=== PATIENT | female | born 1995 | race Caucasian/White ===

== ENCOUNTER 2018-08-30 13:19 | Day surgery (SDC) | payer OTHER ==
[~2018-08-30] VITALS: Ht 152.4 cm; Wt 39.5 kg
[2018-08-30] VITALS (14 sets, daily range): BP systolic 117–132; BP diastolic 68–83; PULSE 54–62; RESP 14–25
[~2018-08-30 13:19] MED LIST: DESFLURANE 15 MIN ONE; DEXAMETHASONE 4 MG/ML 5 ML INJ ONE
[2018-08-30] MEDS ORDERED: CARV25TA97 PO (14:06)
[2018-08-30] MEDS ORDERED: NIFE60TA18 PO (14:06)
--- NOTE | 2018-08-30 15:12 | PREAC ---
Date/Time of Note Date/Time of Note DATE: 08/30/18 TIME: 15:10 Anesthesia Eval and Record Evaluation Time Pre-Procedure Interview DATE: 08/30/18 TIME: 15:10 Age 23 Sex female NPO: 8 hrs water 9am Preoperative diagnosis chronic sinusitis Planned procedure endoscopis sinus surgery Past Medical History Past Medical History: Includes Cardio: HTN Renal: ESRD on dialysis, HD last: (yesterday) Surgery & Anesthesia Issues No known issue Meds Anticoagulation: No Beta Alonso within 24 hr: Yes Reported Medications Carvedilol* (Coreg*) 25 Mg Tablet, 25 MG PO BID, #60 TAB 08/30/18 Nifedipine* (Nifedipine ER*) 60 Mg Tablet.sa, 60 MG PO DAILY, TAB.SA 08/30/18 Meds reviewed: Yes Allergies Coded Allergies: No Known Allergy (Unverified , 08/29/18) Allergies Reviewed: Yes Labs/Studies Labs Reviewed: Reviewed by anesthesiologist Result Diagram: 08/30/18 1400 Laboratory Tests 08/30/18 14:00 test: Negative Studies: ECG (sr), CXR (nl) Pre-procedure Exam Last vitals Vital Signs Date Temp Pulse Resp B/P (MAP) Pulse Ox O2 O2 Flow FiO2 Time Delivery Rate 08/30/18 98.1 56 16 131/82 100 Room Air 14:03 (98) Airway: Adequate mouth opening Mallampati: Mallampati I Teeth: Normal Lung: Normal Heart: Normal ASA Physical Status ASA physical status: 3 Emergency: None Planned Anesthetic General/MAC: ETT Planned Pain Management Parenteral pain med Pre-operative Attestations Prior to commencing anesthesia and surgery, the patient was re-evaluated, there was verification of: *The patient's identity *The results of appropriate recent lab work and preoperative vital signs *The above evaluation not changing prior to induction *Anesthetic plan, risk benefits, alternative and complications discussed with patient/family; questions answered; patient/family understands, accepts and wishes to proceed. ARLET ARAUJO MD Aug 30, 2018 15:12
[2018-08-30] MEDS ORDERED: PROPOFOL 20 ML ONE (15:20)
[2018-08-30] MEDS ORDERED: ROCURONIUM 50 MG INJ ONE (15:20)
[2018-08-30] MEDS ORDERED: MIDAZOLAM 1 MG/ML 2 ML INJ ONE (15:20)
[2018-08-30] MEDS ORDERED: METOCLOPRAMIDE 10 MG INJ ONE (15:21)
--- NOTE | 2018-08-30 15:28 | HPN ---
Date/Time of Note Date/Time of Note DATE: 08/30/18 TIME: 15:28 Interval H&P Admission Note Pt. seen H&P reviewed: No system changes KAYE LYON MD Aug 30, 2018 15:28
[2018-08-30] MEDS ORDERED: hydrALAzine 20 MG INJ IV PRN (15:30)
[2018-08-30] MEDS ORDERED: DIPHENHYDRAMINE 50 MG INJ IV PRN (15:30)
[2018-08-30] MEDS ORDERED: MEPERIDINE 25 MG INJ IV PRN (15:30)
[2018-08-30] MEDS ORDERED: LIDOCAINE 1%/EPI (1:100,000) (MDV) 20 ML ONE (15:30)
[2018-08-30] MEDS ORDERED: OXYMETAZOLINE 0.05% 15 ML NAS SPRAY NASAL ONE (15:30)
[2018-08-30] MEDS ORDERED: HYDROmorphONE 1 MG/5 ML IV SYRINGE IV PRN ×3 (15:30)
[2018-08-30] MEDS ORDERED: EPHEDrine SULFATE 50 MG/5 ML SYG IV PRN (15:30)
[2018-08-30] MEDS ORDERED: ONDANSETRON 4 MG INJ IV PRN (15:30)
[2018-08-30] MEDS ORDERED: LABETALOL HCL 20MG INJ IV PRN (15:30)
[2018-08-30] MEDS ORDERED: BACITRACIN/POLYMYXIN 28.35 GM OINT TOP ONE (15:31)
[2018-08-30] MEDS ORDERED: COCAINE 4% 4 ML TOP ONE (15:31)
[2018-08-30] MEDS ORDERED: FENTAnyl 50 MCG/ML VIAL ONE (15:59)
[2018-08-30] MEDS ORDERED: NEOSTIGMINE 10 MG INJ ONE (16:15)
[2018-08-30] MEDS ORDERED: GLYCOPYRROLATE 0.4 MG INJ ONE (16:15)
[2018-08-30] MEDS ORDERED: CEFAZOLIN 1 GM INJ ONE (16:16)
--- NOTE | 2018-08-30 16:31 | OPR ---
Date/Time of Note Date/Time of Note DATE: 08/30/18 TIME: 16:29 Operative Report Procedure Date: Aug 30, 2018 Preoperative Diagnosis Chronic right maxillary sinusitis. Postoperative Diagnosis Same Operation/Procedure Performed Endoscopic, image guided, right frontal sinusotomy, revision maxillary antrostomy, completion of total ethmoidectomy. Surgeon see signature line Lamination Spinner None Anesthesia Type: general Estimated Blood Loss: 150 - 200 ml's Transfusion none Specimen Right nasal sinus contents. Grafts/Implants none Complications none Pt Condition Post Procedure: stable Disposition: PACU Indications Recurrent polyp and infection right sinus system. Procedure Description Findings: Severe right nasal cavity polyposis, soft tissue mass within the maxillary sinus to the nasopharynx. No aggressive features. Description of procedure:The patient was identified in the holding area. We had a discussion to confirm understanding of all indications risks benefits alternatives and postoperative care associated with the operation. The patient signed informed consent was taken to the operating room. The patient was laid supine on the operating room table and anesthesia was provided in the following manner: GETA. The face was draped in sterile fashion and the nose was packed with 4% cocaine pledgets. 0 endoscopy was performed of all nasal turbinates and meati. This revealed the findings described above. The procedure began on the right side under endoscopic guidance. The microdebrider was used to resect the polypoid mass in an inferior to superior fashion until the area of the frontal sinus outflow tract and previous ethmoid bed was reached. Frontal sinusotomy: A curved curet was used to remove the bony elements of the Ager Nasi cell. Next, with a 45 camera, the frontal sinus outflow tract was entered with a balloon and the tract expanded. Retraction of the balloon allowed removal of excess mucos and bony fragments. Care was taken not to cause too much mucosal disruption in this area in order to avoid scarring and stenosis. Maxillary antrostomy: The large mass was carefully removed from the ethmoid bed and maxillary sinus. The antrostomy that had been made earlier was patent. There was extensive mucosal edema but no invasive process. The sinus was irrigated and excess mucosal polyp removed. Ethmoidectomy: Next, the zero degree endoscope was again used to visualize the middle meatus. Anterior and posterior ethmoid air cell remnants were resected in an inferior to superior fashion sparing the lamina papyracea and the skull base. All excess mucosa and polypoid tissue were removed with an upbiting forcep. At this point, all bony fragments were removed and a large Nasopore was placed into the ethmoidectomy defect. The contralateral side was at this point assessed with endoscopy. The posterior septum was bowed and edematous but no mass or polyp was appreciated. This side was not involved on CT so it was left unaltered. The patient was awakened, extubated and taken to the PACU in stable condition. Complications: None. KAYE LYON MD Aug 30, 2018 16:31
--- NOTE | 2018-08-31 07:42 | PAC ---
Date/Time of Note Date/Time of Note DATE: 08/31/18 TIME: 07:41 Post-Anesthesia Notes Post-Anesthesia Note Last documented vital signs Vital Signs Date Temp Pulse Resp B/P (MAP) Pulse Ox O2 O2 Flow FiO2 Time Delivery Rate 08/30/18 98.5 54 18 126/73 98 17:37 (90) 08/30/18 Room Air 17:26 Activity: WNL Respiratory function: WNL Cardiovascular function: WNL Mental status: Baseline Pain reasonably controlled: Yes Hydration appropriate: Yes Nausea/Vomiting absent: No ARLET ARAUJO MD Aug 31, 2018 07:42
== END 2018-08-30 18:05 | disposition home or self-care (01) ==
LOC: SDS 13:19
PROVIDERS: ATTEND Otolaryngology
DX: J32.0 Chronic maxillary sinusitis (principal)
CPT/HCPCS: 31253; 31256; 80048; 84132; 84702; 88307; 88312; J0690; J1170; J2250; J2710; J2765; J3010; Z7512; Z7610; J1100

== ENCOUNTER 2018-11-27 22:29 | Emergency (ER) | payer BC, OTHER ==
[~2018-11-27] VITALS: Ht 144.8 cm; Wt 41.0 kg
[~2018-11-27 22:29] MED LIST changes: +CARV25TA97 PO; -DESFLURANE 15 MIN ONE; -DEXAMETHASONE 4 MG/ML 5 ML INJ ONE; +NIFE60TA18 PO
[2018-11-27 22:32] VITALS: RESP 16; Ht 144.8 cm; Wt 41.0 kg
--- NOTE | 2018-11-28 00:58 | ERD ---
ER Documentation Chief Complaint Chief Complaint LUQ PAIN WITH LEFT ARM PAIN X 1 HR, DIALYSIS M-W-F HPI 23-year-old female is here with left upper quadrant abdominal pain that began about an hour prior to arrival. She states is better now than it was before. She has no nausea or vomiting. No diarrhea. She is a dialysis patient is a dialysis tomorrow. Last dialysis was on Wednesday. No urinary symptoms. Tolerating oral intake. No fever. ROS All systems reviewed and are negative except as per history of present illness. Medications Home Meds Reported Medications Carvedilol* (Coreg*) 25 Mg Tablet, 25 MG PO BID, #60 TAB 08/30/18 Nifedipine* (Nifedipine ER*) 60 Mg Tablet.sa, 60 MG PO DAILY, TAB.SA 08/30/18 Allergies Allergies: Coded Allergies: No Known Allergy (Unverified , 08/29/18) PMhx/Soc History of Surgery: Yes Anesthesia Reaction: No Hx Neurological Disorder: No Hx Respiratory Disorders: No Hx Cardiac Disorders: Yes (HTN) Hx Psychiatric Problems: No Hx Miscellaneous Medical Probl: No Hx Alcohol Use: No Hx Substance Use: No Hx Tobacco Use: No Smoking Status: Never smoker FmHx Family History: No diabetes Physical Exam Vitals Vital Signs Date Temp Pulse Resp B/P (MAP) Pulse Ox O2 O2 Flow FiO2 Time Delivery Rate 11/27/18 98.0 85 16 138/80 98 22:32 (99) Physical Exam INITIAL VITAL SIGNS: Reviewed by me GENERAL: Awake, alert and oriented x 4, well appearing, nontoxic, speaking in full sentences. No acute distress HEAD: Atraumatic RESPIRATORY: Clear to auscultation bilaterally. Symmetric chest wall rise. No wheezing or rales. No accessory muscle use. CV: Regular rate and rhythm. No murmurs, rubs, or gallops. ABDOMEN: Soft, non-distended. Nontender. Negative [place]. Negative McBurneys point tenderness. No CVA tenderness bilaterally. No guarding. No rebound. Result Diagram: 11/27/18 2306 11/27/18 2306 Results 24 hrs Laboratory Tests Test 11/27/18 23:06 White Blood Count 6.9 10^3/ul Red Blood Count 3.15 10^6/ul Hemoglobin 9.5 g/dl Hematocrit 29.3 % Mean Corpuscular Volume 93.0 fl Mean Corpuscular Hemoglobin 30.2 pg Mean Corpuscular Hemoglobin Concent 32.4 g/dl Red Cell Distribution Width 15.7 % Platelet Count 152 10^3/UL Mean Platelet Volume 11.5 fl Immature Granulocytes % 0.300 % Neutrophils % 46.8 % Lymphocytes % 40.8 % Monocytes % 8.7 % Eosinophils % 3.1 % Basophils % 0.3 % Nucleated Red Blood Cells % 0.0 /100WBC Immature Granulocytes # 0.020 10^3/ul Neutrophils # 3.2 10^3/ul Lymphocytes # 2.8 10^3/ul Monocytes # 0.6 10^3/ul Eosinophils # 0.2 10^3/ul Basophils # 0.0 10^3/ul Nucleated Red Blood Cells # 0.0 10^3/ul Sodium Level 137 mmol/L Potassium Level 5.9 mmol/L Chloride Level 93 mmol/L Carbon Dioxide Level 33 mmol/L Anion Gap 11 Blood Urea Nitrogen 71 mg/dl Creatinine 11.22 mg/dl Est Glomerular Filtrat Rate mL/min 4 mL/min Glucose Level 111 mg/dl Calcium Level 9.6 mg/dl Total Bilirubin 0.1 mg/dl Direct Bilirubin 0.00 mg/dl Indirect Bilirubin 0.1 mg/dl Aspartate Amino Transf (AST/SGOT) 14 IU/L Alanine Aminotransferase (ALT/SGPT) 35 IU/L Alkaline Phosphatase 141 IU/L Troponin I < 0.012 ng/ml Total Protein 8.1 g/dl Albumin 4.5 g/dl Globulin 3.60 g/dl Albumin/Globulin Ratio 1.25 Lipase 269 U/L Procedures/MDM The differential diagnosis includes but is not limited to appendicitis, cholelit hiasis, cholecystitis, pancreatitis, hepatitis, gastritis, peptic ulcer disease, bowel obstruction, diverticulitis, renal disease including stones, torsion, AAA, pyelonephritis, and others. Chemistry panel shows potassium of 5.9. BUN and creatinine are elevated as expected given she is dialysis patient. Labs reviewed with Dr. Garnett who stattes pt is suitable for outpaitent mangement. Pt has appoint for dialysis tomorrow. Patient counseled regarding my diagnostic impression and care plan. Prior to discharge all questions answered. Pt agrees with treatment plan and understands strict return precautions. Pt is instructed to follow up with primary care provider within 24-48 hours. Precautionary instructions provided including instructions to return to the ER if not improving or for any worsening or changing symptoms or concerns. Departure Diagnosis: Primary Impression: Abdominal pain Condition: Stable Patient Instructions: Abdominal Pain Additional Instructions: Call your primary care doctor TOMORROW for an appointment during the next 1-2 days.See the doctor sooner or return here if your condition worsens before your appointment time. EMA CAMARA PA-C Nov 28, 2018 00:58
[2018-11-28 01:24] VITALS: BP 122/85; PULSE 67
== END 2018-11-28 01:24 | disposition home or self-care (01) ==
LOC: FTE 22:29
DX: R10.12 Left upper quadrant pain (principal); I10 Essential (primary) hypertension
CPT/HCPCS: 36415; 80053; 83690; 84484; 85025; 93005